=== PATIENT | male | born 1990 | race African-American/Black ===

== ENCOUNTER 2016-11-05 08:12 | Emergency (ER) | payer BC ==
[~2016-11-05] VITALS: Ht 170.2 cm; Wt 73.0 kg
[2016-11-05] MEDS ORDERED: TETANUS, DIPHTHERIA, PERTUSSIS VAC/PF 0.5ML (>7YR OLD) IM ONE (09:30)
[2016-11-05] MEDS ORDERED: KETOROLAC 60MG/2ML VIAL IM ONE (09:30)
[2016-11-05 09:54] VITALS: BP 139/88
[2016-11-05] MEDS ORDERED: BACITRACIN ZINC OINT UDPKT TOP ONE (11:00)
== END 2016-11-05 11:09 | disposition left against medical advice (07) ==
LOC: ER 08:40
DX: S62.001A Unspecified fracture of navicular [scaphoid] bone of right wrist, initial encounter for closed fracture (principal); F17.210 Nicotine dependence, cigarettes, uncomplicated; Y04.0XXA Assault by unarmed brawl or fight, initial encounter; Y93.89 Activity, other specified; Y92.9 Unspecified place or not applicable; Y99.8 Other external cause status
CPT/HCPCS: 73110; 73130; 90471; 90715; 96372; 99284; J1885; X7700; Z7610

== ENCOUNTER 2020-08-02 20:21 | Emergency (ER) | payer BC, MEDICAID ==
[~2020-08-02] VITALS: Ht 167.6 cm; Wt 73.7 kg
[2020-08-02] MEDS ORDERED: LIDOCAINE HCL/PF 1% 10 MG/ML 5ML VIAL IJ ONE (21:30)
[2020-08-02] MEDS ORDERED: ACETAMINOPHEN 325MG TABLET PO ONE (21:30)
[2020-08-02] MEDS ORDERED: BACITRACIN ZINC OINT UDPKT TOP ONE (21:30)
[2020-08-02] MEDS ORDERED: TETANUS, DIPHTHERIA, PERTUSSIS VAC/PF 0.5ML (>7YR OLD) IM ONE (21:30)
[2020-08-02 21:37] VITALS: BP 159/85
== END 2020-08-02 22:21 | disposition home or self-care (01) ==
LOC: ER 20:21
DX: S11.81XA Laceration without foreign body of other specified part of neck, initial encounter (principal); S01.312A Laceration without foreign body of left ear, initial encounter; F17.210 Nicotine dependence, cigarettes, uncomplicated; W45.8XXA Other foreign body or object entering through skin, initial encounter; Y93.89 Activity, other specified; Y92.89 Other specified places as the place of occurrence of the external cause
CPT/HCPCS: 12002; 12011; 90715; 99283; A4217; J3490; Z7610; 99282

== ENCOUNTER 2022-02-20 03:14 | Emergency (ER) | payer MEDICAID ==
[~2022-02-20] VITALS: Ht 165.1 cm; Wt 74.0 kg
[2022-02-20 05:50] LABS: BASOPHILS % 0.4 % (0.0-2.0); EOSINOPHILS % 1.5 % (0.0-5.0); HEMATOCRIT. 41.6 % (42.0-52.0); HEMOGLOBIN. 13.8 g/dL (14.0-18.0); LYMPHOCYTES % 22.5 % (20.0-50.0); MEAN CORPUSCULAR HEMOGLOBIN 31.2 pg (28.0-32.0); MEAN CORPUSCULAR VOLUME 94.3 fL (80.0-94.0); MEAN PLATELET VOLUME 10.7 fl (7.4-10.4); NEUTROPHILS % 65.6 % (40.0-76.0); PLATELET 159 x1000/uL (130-400); RED BLOOD CELL COUNT 4.42 mill/uL (4.7-6.1); RED CELL DISTRIBUTION WIDTH 13.8 % (11.6-14.6)
[2022-02-20 05:56] LABS: CHLORIDE 106 mEq/L (98-107)
[2022-02-20 06:03] LABS: CLARITY URINE CLEAR (CLEAR); COLOR URINE YELLOW (YELLOW); KETONES URINE 1+ (NEGATIVE); LEUKOCYTE ESTERASE URINE NEGATIVE (NEGATIVE); NITRITE URINE NEGATIVE (NEGATIVE); OCCULT BLOOD URINE NEGATIVE (NEGATIVE); PH URINE 5.5 (4.5-8.0); PROTEIN URINE NEGATIVE (NEGATIVE); SPECIFIC GRAVITY URINE 1.027 (1.005-1.030)
[2022-02-20 06:04] LABS: ETHANOL BLOOD < 10 mg/dL
[2022-02-20 06:22] LABS: *AMPHETAMINES SCREEN URINE PRESUMTIVE POSITIVE (NEGATIVE); *BARBITURATES SCREEN URINE NEGATIVE (NEGATIVE); *BENZODIAZEPINES SCREEN URINE NEGATIVE (NEGATIVE); *COCAINE SCREEN URINE NEGATIVE (NEGATIVE); CANNABINOID URINE SCREEN PRESUMTIVE POSITIVE (NEGATIVE); METHADONE URINE SCREEN NEGATIVE (NEGATIVE); OPIATES URINE SCREEN NEGATIVE (NEGATIVE); PHENCYCLIDINE URINE SCREEN NEGATIVE (NEGATIVE)
[2022-02-20 11:40] VITALS: BP 139/85
[2022-02-20] MEDS ORDERED: IBUP-2028 PO (11:44)
== END 2022-02-20 13:08 | disposition home or self-care (01) ==
LOC: ER 03:14
DX: S62.396A Other fracture of fifth metacarpal bone, right hand, initial encounter for closed fracture (principal); F32.A Depression, unspecified; R45.851 Suicidal ideations; F91.8 Other conduct disorders; F15.10 Other stimulant abuse, uncomplicated; F12.10 Cannabis abuse, uncomplicated; F17.210 Nicotine dependence, cigarettes, uncomplicated; Z20.822 Contact with and (suspected) exposure to COVID-19; Z59.00 Homelessness unspecified; W22.8XXA Striking against or struck by other objects, initial encounter; Y93.89 Activity, other specified; Y92.89 Other specified places as the place of occurrence of the external cause
CPT/HCPCS: 29125; 36415; 73130; 80053; 80305; 80320; 81003; 82962; 85025; 99284; C9803; U0003; U0005; G0480

== ENCOUNTER 2022-03-14 23:09 | Emergency (ER) | payer MEDICAID ==
[~2022-03-14 23:09] MED LIST: IBUP-2028 PO
== END 2022-03-15 01:36 | disposition left against medical advice (07) ==
LOC: ER 23:09
DX: Z53.21 Procedure and treatment not carried out due to patient leaving prior to being seen by health care provider (principal)

== ENCOUNTER 2024-08-09 01:04 | Emergency (ER) | payer MEDICAID ==
[~2024-08-09] VITALS: Ht 170.2 cm; Wt 73.1 kg
[2024-08-09 01:10] VITALS: TEMP 37.1; O2SAT 99
[2024-08-09] MEDS: ACETAMINOPHEN 325MG TABLET PO ONE (04:38)
[2024-08-09 05:04] VITALS: BP 134/95; PULSE 89; RESP 16; O2SAT 99
== END 2024-08-09 05:04 | disposition home or self-care (01) ==
LOC: ER 01:04
DX: M79.671 Pain in right foot (principal); M79.672 Pain in left foot; F12.10 Cannabis abuse, uncomplicated
CPT/HCPCS: 99281

== ENCOUNTER 2024-08-10 20:17 | Emergency (ER) | payer MEDICAID ==
[~2024-08-10] VITALS: Ht 170.2 cm; Wt 70.0 kg
[2024-08-10 20:20] VITALS: BP 125/70; PULSE 100; RESP 18; TEMP 36.9; O2SAT 100
== END 2024-08-10 22:10 | disposition left against medical advice (07) ==
LOC: ER 20:17
DX: J11.1 Influenza due to unidentified influenza virus with other respiratory manifestations (principal); Z53.21 Procedure and treatment not carried out due to patient leaving prior to being seen by health care provider